=== PATIENT | female | born 1965 | race Caucasian/White ===

== ENCOUNTER 2018-07-28 04:50 | Emergency (ER) | payer OTHER ==
[~2018-07-28] VITALS: Ht 160 cm; Wt 140.6 kg
[~2018-07-28 04:50] MED LIST: HYDR-3164 PO; IBUP-1060 PO
[2018-07-28 05:09] VITALS: BP 146/94
--- NOTE | 2018-07-28 05:48 | PHYS DOC ---
Past Medical History Alcohol Use: Occasionally Drug Use: None Adult General Chief Complaint Chief Complaint: KNEE SWELLING HPI HPI Patient is a 53 year old female presents with left knee pain tenderness and swelling. Denies trauma patient is currently undergoing occupational physical therapy for shoulder reports doing exercises yesterday that involved knee lunching. Reports increased pain following exercise. Pain is worse with palpation knee extension and weightbearing. NSAIDs, ice taken prior to ED arrival. No other acute symptoms or complaints [] Review of Systems Review of Systems His symptoms as per history of present illness. All other review symptoms are negative. All other systems were reviewed and found to be within normal limits, except as documented in this note. Current Medications Current Medications Current Medications Medications (Trade) Dose Ordered Sig/Royer Start Time Stop Time Status Last Admin Dose Admin Acetaminophen (Tylenol) 650 mg 1X ONCE 07/28/18 06:00 07/28/18 06:01 DC 07/28/18 05:56 650 MG Allergies Allergies Allergies Coded Allergies Type Severity Reaction Last Updated Verified Penicillins Allergy Unknown Hives 02/22/17 Yes Physical Exam Physical Exam Constitutional: Well developed, well nourished, no acute distress, non-toxic appearance. []] Extremities: Left knee, bruising, erythema or warmth. Tenderness to palpation and on range of motion.. [] Neurologic: Alert and oriented X 3, normal motor function, normal sensory function, no focal deficits noted. [] Psychologic: Affect normal, judgement normal, mood normal. [] Current Patient Data Vital Signs Vital Signs Date Time Temp Pulse Resp B/P (MAP) Pulse Ox O2 Delivery O2 Flow Rate FiO2 07/28/18 05:09 97.9 84 21 146/94 (111) 96 Room Air 97.9 EKG EKG [] Radiology/Procedures Radiology/Procedures [Left knee x-ray: No acute findings ] Course & Med Decision Making Course & Med Decision Making Pertinent Labs and Imaging studies reviewed. (See chart for details) [Left knee pain, tenderness. Will obtain x-ray. Anticipate discharge home with supportive care options.] Dragon Disclaimer Dragon Disclaimer This electronic medical record was generated, in whole or in part, using a voice recognition dictation system. Departure Departure Impression: Primary Impression: Left knee pain Disposition: HOME, SELF-CARE Condition: STABLE Referrals: KARLI MILLER MD (PCP) Patient Instructions: Knee Pain, [id number] Additional Instructions: Please use crutches and use knee immobilizer. Continue ibuprofen and take tramadol as needed for additional relief. Follow-up with your PCP early next week for reevaluation. Scripts Hydrocodone Bit/Acetaminophen (HYDROCODONE-APAP 5-325 ) 1 Tab Tablet 1 TAB PO PRN Q6HRS PRN for PAIN, #15 TAB 15 Refills Prov: KAI SALOMON DO 07/28/18 KAI SALOMON DO July 28, 2018 05:48
[2018-07-28] MEDS ORDERED: HYDR-2761 PO (05:51)
[2018-07-28] MEDS ORDERED: ACETAMINOPHEN 325 MG TABLET. PO ONE (06:00)
--- NOTE | 2018-07-28 06:41 | RAD ---
KNEE 3 VIEWS LEFT Clinical Indication: Knee pain, no injury. Comparison: None. Findings: There is no acute fracture or dislocation. Moderate narrowing of the medial compartment. There are tiny marginal osteophytes of all 3 compartments. The patella is in anatomic position. There is no soft tissue abnormality. There is no joint effusion. IMPRESSION: No acute fracture. Electronically signed by: Luis Bales MD (07/28/2018 6:38 AM) [facility]
== END 2018-07-28 06:27 | disposition home or self-care (01) ==
LOC: ER 04:50
DX: M25.562 Pain in left knee (principal); R22.42 Localized swelling, mass and lump, left lower limb
CPT/HCPCS: 73562; 99284

== ENCOUNTER → 2018-09-18 | Day surgery (SDC) | payer OTHER ==
[~2018-09-18] VITALS: Ht 160 cm; Wt 139.3 kg
[~2018-09-18] MED LIST changes: +ALPR0.5T PO; +BUPIVACAINE MPF 0.5% 30 ML VIAL. ONE; +CHOL100013 PO; +CLINDAMYCIN 900MG PREMIX 50 ML IV PRN; +DESFLURANE 61 TO 120 MINUTES IH ONE; +DOCU-109 PO; +EPINEPHrine VIAL 30 MG/30 ML VIAL ONE; +FAMOTIDINE 20 MG/2 ML VIAL ONE; +GLYCOPYRROLATE 1 MG/5 ML VIAL. ONE; +HYDR-2761 PO; +HYDROmorphone 2 MG/ML VIAL IV PRN; +IV RINGERS,LACTATED 1000ML 1,000 ML IV SCH; +LIDOCAINE 1% 20 ML VIAL. ONE; +LIDOCAINE 1% PF 2 ML VIAL. ID PRN; +LIDOCAINE 2% PF 5 ML VIAL. ONE; +MIDAZOLAM HCL/PF 2 MG/2 ML VIAL. ONE; +MORPHINE SULFATE 2 MG/ML VIAL. IV PRN; +MORPHINE SULFATE 2 MG/ML VIAL. ONE; +NEOSTIGMINE METHYLSULFATE 5 MG/5 ML SYRINGE. ONE; +ONDA8TAB15 PO; +ONDANSETRON PF 4 MG/2 ML VIAL. IV PRN; +ONDANSETRON PF 4 MG/2 ML VIAL. ONE; +OXYC1TAB15 PO; +PROCHLORPERAZINE 10 MG/2 ML VIAL. IV PRN; +PROPOFOL 20 ML IV ONE; +ROCURONIUM 50 MG/5 ML VIAL. ONE; +SUCCINYLCHOLINE 200 MG/10 ML VIAL. ONE; +fentaNYL PF VIAL 100 MCG/2 ML VIAL IV PRN; +fentaNYL PF VIAL 100 MCG/2 ML VIAL ONE; +oxyCODONE/APAP 5/325 1 TAB TABLET PO ONE
--- NOTE | 2018-09-18 08:41 | DISCH ---
DISCHARGE INSTRUCTIONS Condition on Discharge Condition on Discharge: Stable Activity After Discharge Activity Instructions for Disc: No restrictions, Other ROM activity Other activity instructions: arm to remain in sling Bathing Instructions: Shower-keep dressing dry Weight Bearing Status after Di: As tolerated Diet after Discharge Diet after Discharge: Regular Wound Incision Care Wound/Incision Care: Ice to area for comfort, Keep wound/cast CDI, Change dressing Contacting the DR. after DC Call your doctor for: Concerns you may have Follow-Up Follow up with: Eduardo in 2 weeks CRUZITO REYNA II, MD Sep 18, 2018 08:41
[2018-09-18] MEDS: fentaNYL PF VIAL 100 MCG/2 ML VIAL IV PRN ×6 (08:45→09:34)
--- NOTE | 2018-09-18 08:46 | PDOC4 ---
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 plus regional nerve block Competitions: None Components inserted: [employer] helacoil anchor �1 Findings: #1 tendinosis type changes at supraspinatus #2 remainder rotator cuff intact #3 grade 1-2 changes at humeral head #4 full-thickness cartilage loss at majority of glenoid #5 and intact biceps labral complex #6 large amount of degenerative type labral fraying #7 no loose bodies Reason for procedure: Patient is a pleasant 52-year-old female with long- standing left shoulder pain and dysfunction that has gotten progressively worse despite conservative therapy including injections and physical therapy. We had a discussion of the risks, benefits, and alternatives to the above surgery and she wished to proceed. Description of procedure: Patient was greeted in the preoperative area by myself where the correct extremity was verified and marked. She was taken to the operative suite and her antibiotics were started as she was brought back. Prior to coming back to the OR, she had placement of a regional nerve block by the anesthesiology team. Once in the operating room, she underwent successful induction of a general anesthetic after she was transferred onto the operating table. We set her up in a beachchair position with a large pad under her legs. She was secured the bed. We then proceeded to prep and drape left upper extremity and shoulder girdle in our usual sterile fashion including Ioban at the periphery. I palpated and marked surface anatomy gain entry to her glenohumeral joint with a spinal needle through his posterior superior portal. I then introduce the blunt arthroscopic trocar into the glenohumeral joint and used a spinal needle to localize an anterosuperior portal and incised skin and dilated in accordance with this position. I then conducted my diagnostic arthroscopy with above noted findings. I then used the shaver to debride the degenerative labral fraying. I then passed a PDS suture through the pathologic- appearing rotator cuff tendon at its leading edge. I then repositioned my camera into the subacromial space and using electrocautery device and shaver performed a bursectomy. Identified the area where my PDS suture was coming through, the tendon was quite thin and easily violated with a blunt trocar. I then used the shaver after removing the suture to debride this area. I prepared the footprint, taking care not to decorticate and placed my anchor. I then used a Vinylmint suture passing device to shuttle 2 sutures through in a simple configuration and tied these down with arthroscopic knot-tying techniques. The tear was stable to probing and rotation of her arm. After this, all excess arthroscopic fluid was removed as well as instrumentation. Portals were closed with simple interrupted 2-0 nylon. A sterile bulky dressing was applied followed by an abduction pillow sling. She was laid supine and transferred gently supine to the recovery room cart and taken to PACU stable and extubated condition. No complications postoperative postoperative plan is to discharge her home. She will be nonweightbearing. I'll see her back in 2 weeks, sooner should a problem arise PIERO REYNA II, MD Sep 18, 2018 08:46
[2018-09-18] MEDS: MORPHINE SULFATE 2 MG/ML VIAL. IV PRN ×2 (09:21→09:38)
[2018-09-18 09:40] VITALS: BP 165/79
== END ==
LOC: SURG 05:56
PROVIDERS: ATTEND Orthopaedic Surgery Sports Medicine
DX: M75.112 Incomplete rotator cuff tear or rupture of left shoulder, not specified as traumatic (principal); M19.012 Primary osteoarthritis, left shoulder; M24.112 Other articular cartilage disorders, left shoulder; Z90.49 Acquired absence of other specified parts of digestive tract; Z98.890 Other specified postprocedural states; Z88.0 Allergy status to penicillin
CPT/HCPCS: 29822; 29827; A7015; C1713; C1782; J0171; J0330; J2001; J2250; J2270; J2405; J2704; J2710; J3010; J3490; J7120